=== PATIENT | male | born 1960 | race Caucasian/White ===

== ENCOUNTER 2016-09-13 17:39 | Inpatient (IN) | payer OTHER ==
[~2016-09-13] VITALS: Ht 172.7 cm; Wt 104.0 kg
[2016-09-13 20:18] LABS: MAGNESIUM 2.2 mg/dL (1.6-2.3); PHOSPHOROUS 4.5 mg/dL (2.5-4.5)
[2016-09-13 20:32] VITALS: BP 178/86; PULSE 55; TEMP 98.5
[2016-09-13 22:32] LABS: PH 5 (5-8); SQUAMOUS EPITHELIAL None Seen /hpf; URINE APPEARANCE Clear; URINE BACTERIA None Seen /hpf; URINE BILIRUBIN Negative (NEGATIVE); URINE BLOOD Negative (NEGATIVE); URINE COLOR Yellow; URINE GLUCOSE Negative (NEGATIVE); URINE KETONE Negative (NEGATIVE); URINE RBC 0-2 /hpf; URINE UROBILINOGEN Negative (NEGATIVE); URINE WBC 0-2 /hpf
[2016-09-13 23:23] VITALS: BP 143/88; PULSE 50; TEMP 98.4
[2016-09-14 03:07] VITALS: BP 136/88; PULSE 50; TEMP 98.8
[2016-09-14 06:51] LABS: HEMATOCRIT 47.2 % (42.0-52.0); MEAN CELL VOLUME 90 fl (80.0-100.0); MEAN CORPUSCULAR HEMOGLOBIN 30 pg (27.0-31.0); MEAN CORPUSCULAR HGB CONC 34 g/dl (33.0-37.0); MEAN PLATELET VOLUME 10.5 fl (7.4-10.4); PLATELET COUNT 210 K/mm3 (130-400); RED BLOOD COUNT 5.27 M/mm3 (4.20-5.60); REDCELL DISTRIBUTION WIDTH-CV 12.8 % (11.5-14.5); WHITE BLOOD COUNT 8.4 K/mm3 (4.8-10.8)
[2016-09-14 06:59] LABS: ADD PATHOLOGY DIFF REVIEW NO
[2016-09-14 07:34] LABS: BAND 3 % (0-10); EOSINOPHIL 1 % (0-4); NEUTROPHILS 59 % (42.0-75.2); PLATELET ESTIMATE NORMAL (NORMAL); TOTAL CELLS COUNTED 100
[2016-09-14 07:40] LABS: ANION GAP 10 mmol/L (7-16); BLOOD UREA NITROGEN 16 mg/dL (9-20); CALCIUM 9.1 mg/dL (8.4-10.2); CARBON DIOXIDE 26 mmol/L (22-30); CHLORIDE 101 mmol/L (98-107); CREATININE, serum 0.89 mg/dL (0.66-1.25); GLUCOSE 97 mg/dL (74-106); POTASSIUM 4.2 mmol/L (3.4-5.0); SODIUM 138 mmol/L (137-145)
[2016-09-14 07:42] LABS: C-REACTIVE PROTEIN < 0.5 mg/dL (0.0-0.9)
[2016-09-14 07:44] VITALS: BP 151/100; PULSE 98; TEMP 98.4
[2016-09-14 07:48] LABS: CHOLESTEROL 259 mg/dL (120-200); HDL CHOLESTEROL 54 mg/dL; LDL CHOLESTEROL 174 mg/dL; TRIGLYCERIDE 154 mg/dL
[2016-09-14 16:10] VITALS: BP 182/90; PULSE 52; TEMP 98.4
[2016-09-14 20:02] VITALS: BP 161/88; PULSE 50; TEMP 97.6
[2016-09-14 23:21] VITALS: BP 161/102; PULSE 77; TEMP 98.3
[2016-09-15 02:29] VITALS: BP 135/80; PULSE 50; TEMP 98.3
[2016-09-15 07:51] VITALS: BP 140/88; PULSE 49; TEMP 97.9
[2016-09-15 11:22] VITALS: BP 142/71; PULSE 51; TEMP 97.6
[2016-09-15] MEDS ORDERED: LIPITOR 40MG TA40 MG PO (16:13)
[2016-09-15] MEDS ORDERED: LOPRESSOR 550 MG/TAB PO (16:13)
[2016-09-15] MEDS ORDERED: ASPIRIN 32325 MG/TAB PO (16:14)
== END 2016-09-15 17:00 | disposition home or self-care (01) | DRG 69 ==
LOC: MEDICAL 17:39
PROVIDERS: Nurse Practitioner Family
DX: G45.9 Transient cerebral ischemic attack, unspecified (principal); I10 Essential (primary) hypertension; I27.2 Other secondary pulmonary hypertension; G47.33 Obstructive sleep apnea (adult) (pediatric); E78.5 Hyperlipidemia, unspecified
CPT/HCPCS: 99223-AI; 99239; A9585; G0378; G0379; G8996-GN; G8997-GN; J1650

== ENCOUNTER → 2016-09-27 | Outpatient (CLI) | payer OTHER ==
[~2016-09-27] VITALS: Ht 172.7 cm; Wt 102.3 kg
[~2016-09-27] MED LIST: ASPIRIN 32325 MG/TAB PO; LIPITOR 40MG TA40 MG PO; LOPRESSOR 550 MG/TAB PO
[2016-09-27 08:28] VITALS: BP 156/99; PULSE 44
[2016-09-27 09:14] VITALS: BP 132/87; PULSE 45
[2016-09-27 09:30] VITALS: BP 125/86; PULSE 49
[2016-09-27 09:45] VITALS: BP 142/86; PULSE 44
[2016-09-27 10:00] VITALS: BP 133/89; PULSE 46
[2016-09-27 10:15] VITALS: BP 143/94; PULSE 48
[2016-09-27 12:01] LABS: CEREBROSPINAL TUBE #1; CSF APPEARANCE CLEAR; CSF COLOR COLORLESS
[2016-10-02 10:00] LABS: CSF,IGG 6.8 mg/dL (<=8.1)
[2016-10-02 10:21] LABS: CSF IGG/ALBUMIN 0.16 (<=0.21)
[2016-10-02 10:32] LABS: CSF SYNTHESIS RATE 6.43 mg/24 h (<=12); CSF-IGG INDEX 0.57 (<=0.85); IGG/ALBUMIN SERUM 0.28 (<=0.40)
== END ==
LOC: COL.RAD 07:45
PROVIDERS: Psychiatry & Neurology Neurology
DX: R20.0 Anesthesia of skin (principal)